=== PATIENT | male | born 1945 | race Caucasian/White ===

== ENCOUNTER 2016-06-14 10:45 | Emergency (ER) | payer OTHER ==
[~2016-06-14] VITALS: Ht 193 cm; Wt 109.0 kg
[~2016-06-14 10:45] MED LIST: ASPI325T PO; MECL25 PO; Z.0.WALKERFRONT; ZOCO10TA PO
[2016-06-14 10:48] VITALS: BP 154/86; PULSE 85; RESP 18; TEMP 98.3; O2SAT 95
[2016-06-14] MEDS ORDERED: LOSA100T PO (11:01)
[2016-06-14] MEDS ORDERED: SIMV40TA PO (11:01)
[2016-06-14] MEDS ORDERED: TEST-25 PO ×2 (11:01→11:02)
--- NOTE | 2016-06-14 11:34 | PD ---
HPI Chief Complaint: Cold / Flu Symptoms Time Seen by Provider: 11:15 Travel History International Travel<30 days: No Contact w/Intl Traveler<30days: No Traveled to known affect area: No History of Present Illness HPI 70-year-old male with history of a asbestosis presents to the emergency room for evaluation of persistent, dry cough. States it has been ongoing for the past 6 weeks. Started off with a slight sore throat but that has since gone away. Cough is worse during the day and improves at night. He went to his primary care physician 2 times and was diagnosed with bronchitis and given multiple medications including Tessalon Perles, Delsym, and pseudoephedrine but states none of them seem to be helping. He took a short course of low-dose Augmentin without improvement in symptoms. Patient denies shortness of breath, congestion, earache, fever, chills, nausea, and vomiting. Reports associated pleuritic chest pain that only occurs with cough. Denies cardiac history or leg edema. Denies smoking. PFSH Past Medical History Hx Anticoagulant Therapy: Yes (BABY ASA DAILY) Cancer: No Cardiovascular Problems: Yes (CHOL) High Cholesterol: Yes Diabetes: No Diminished Hearing: Yes Endocrine: No Genitourinary: No Hypertension: Yes Immune Disorder: No Musculoskeletal: No Psychiatric: No Reproductive: No Respiratory: Yes (ASBESTOSIS) Immunizations Current: Yes Tetanus Vaccination: > 5 Years Influenza Vaccination: Yes Past Surgical History Abdominal Surgery: Yes (HERNIA SX ON LEFT SIDE OF ABD) AICD: No Arteriovenous Shunt: No Cardiac Surgery: No Cholecystectomy: Yes Ear Surgery: No Endocrine Surgery: No Eye Surgery: Yes (LASIK) Genitourinary Surgery: No Gynecologic Surgery: No Insulin Pump: No Joint Replacement: Yes (bilateral knee replacement) Oral Surgery: No Pacemaker: No Thoracic Surgery: No Tonsillectomy: Yes Other Surgery: Yes Social History Alcohol Use: No Tobacco Use: No Substance Use: No Allergies-Medications (Allergen,Severity, Reaction): Coded Allergies: No Known Allergies (Verified , 06/14/16) Reported Meds & Prescriptions Reported Meds & Active Scripts Active Azithromycin 250 Mg Tab 250 Mg PO DIRECTED Take 2 tabs (500 mg) on day 1 then 1 tab daily x 4 days. Tessalon Perles (Benzonatate) 100 Mg Cap 100 Mg PO TID PRN 7 Days Reported [Testosterone] 1 Tab PO DAILY Losartan (Losartan Potassium) 100 Mg Tab 100 Mg PO DAILY Simvastatin 40 Mg Tab 40 Mg PO HS Review of Systems Except as stated in HPI: all other systems reviewed are Neg Physical Exam Narrative GENERAL: Well-nourished, well-developed male in no acute distress. Afebrile. Ambulatory. SKIN: Warm and dry. HEAD: Normocephalic. EYES: No scleral icterus. No injection or drainage. EARS: Bilateral pinnae and external canals appear within normal limits. Bilateral tympanic membranes without erythema, dullness or perforation. ENT: Mucosa pink and moist. No erythema or exudates. No uvular edema. No uvular , palatal, or tonsillar deviation. Airway patent. NECK: Supple, trachea midline. No JVD or lymphadenopathy. CARDIOVASCULAR: Regular rate and rhythm without murmurs, gallops, or rubs. RESPIRATORY: Breath sounds equal bilaterally. No accessory muscle use. No crackles, rales, wheezes, or rhonchi. Data Data Last Documented VS Vital Signs Date Time Temp Pulse Resp B/P Pulse Ox O2 Delivery O2 Flow Rate FiO2 06/14/16 11:02 99 Room Air 06/14/16 10:48 98.3 85 18 154/86 Orders Chest, Pa & Lat (06/14/16 ) [facility] Medical Decision Making Medical Screen Exam Complete: Yes Emergency Medical Condition: Yes Medical Record Reviewed: Yes Differential Diagnosis Bronchitis versus GERD versus URI Narrative Course 70-year-old male with a history of asbestosis presents to the emergency room for evaluation of persistent, dry cough for the past 6 weeks. Patient has seen his primary care physician 2 times and been given multiple medications without relief in symptoms. Cough is worst throughout the day and improves at night. Vital signs stable. 99% on room air. Coughing rarely in the emergency room. Lung sounds clear and equal bilaterally. X-ray reveals bibasilar atelectasis but no evidence of pneumonia or CHF. I had my attending physician, Dr. meraz, assess the patient and he agrees patient is well-appearing, stable, and there are no indications for admission. Given the persistence of cough, patient could have GERD or allergies. He'll be treated conservatively with azithromycin and Guaifenesin-codeine. Told to follow up with a model and mold maker if symptoms persist or return to the emergency room for worsening symptoms. He understands and agrees to this plan. Diagnosis Primary Impression: Acute bronchitis Qualified Code: J20.9 - Acute bronchitis, unspecified organism Referrals: Primary Care Physician Patient Instructions: Acute Bronchitis (ED), General Instructions Additional Instructions: Rest and drink plenty of fluids. Take azithromycin as directed, until gone. Take Tessalon Perles as directed, as needed for cough. Follow-up with a primary care physician. Return to the emergency room for worsening symptoms. Med/Other Pt SpecificInfo: Prescription(s) given Scripts Azithromycin 250 Mg [id number] Mg PO DIRECTED #6 TAB Ref 0 Take 2 tabs (500 mg) on day 1 then 1 tab daily x 4 days. Prov:Clinton Romo MD 06/14/16 Benzonatate (Tessalon Perles)100 Mg [id number] Mg PO TID PRN (COUGH) 7 Days Ref 0 Prov:Clinton Romo MD 06/14/16 Disposition: 01 DISCHARGE HOME Condition: Stable Cristy Apple Jun 14, 2016 11:34
--- NOTE | 2016-06-14 11:52 | RADHPO ---
EXAM DATE/TIME: 06/14/2016 11:33 [facility] COMPARISON: No previous studies available for comparison. INDICATIONS: Cough MEDICAL HISTORY: None. SURGICAL HISTORY: None. ENCOUNTER: Initial ACUITY: 2 months PAIN SCORE: 2/10 LOCATION: Bilateral chest FINDINGS: Scattered atelectactic changes are noted within the lung bases. No pulmonary edema or pneumonia is n oted. The heart is normal. CONCLUSION: 1. Scattered bibasilar atelectactic changes. Telly Travis MD on June 14, 2016 at 11:44 Board Certified Radiologist. This report was verified electronically.
[2016-06-14] MEDS ORDERED: AZIT250T3 PO (12:01)
[2016-06-14] MEDS ORDERED: BENZ100 PO (12:01)
[2016-06-14] MEDS ORDERED: GUAI100S5 PO ×2 (12:03→12:04)
== END 2016-06-14 12:13 | disposition home or self-care (01) ==
LOC: PHEFT 10:45
DX: J20.9 Acute bronchitis, unspecified (principal)
CPT/HCPCS: 71020; 99284